=== PATIENT | male | born 1980 | race Caucasian/White ===

== ENCOUNTER 2024-02-16 15:21 | Emergency (ER) | payer OTHER, SELFPAY ==
--- NOTE | ~2024-02-16 | CT_ITS ---
EXAMINATION: CT SOFT TISSUE NECK WITH CONTRAST CLINICAL INFORMATION: Pressure in throat, swelling COMPARISON: None. TECHNIQUE: Following the administration of 60 mL of Omnipaque 350 intravenous contrast, helical imaging was performed in the axial plane with generation of coronal and sagittal reformatted images. This CT examination was performed using dose optimization techniques as appropriate, variously including the following: *Automated exposure control. *Adjustment of mA and/or kV according to patient size (this includes techniques or standardized protocols for targeted exams where dose is matched to indication/reason for exam; i.e. extremities or head). *Use of iterative reconstruction technique. DLP: 485 mGy-cm. FINDINGS: The fat planes of the skull base and soft tissues of the nasopharynx are unremarkable. Trace mucosal thickening in the left maxillary sinus alveolar recess. No mastoid effusion. The temporomandibular joints are normal. The oral cavity is normal. Bilateral punctate calcified palatine tonsilloliths with otherwise unremarkable appearance of the oropharynx. The laryngeal structures are opposed, limiting assessment. No radiopaque foreign body. There are elongated and ossified left greater than right styloid processes/stylohyoid ligaments, terminating at the level of the palatine tonsils, that can be correlated for [place] syndrome. The right styloid process slightly indents upon the right internal jugular vein below the skull base. The submandibular and parotid glands are normal. Diffuse thyromegaly can be correlated with thyroid function tests. No mass effect along the airway. No pathologic size criteria or morphologically suspicious cervical chain lymph nodes. The partially visualized lung apices are clear. Normal opacification of the major neck vessels. At C5-C6, a right central disc osteophyte protrusion likely indents upon the ventral cord. There is asymmetric severe right C7-T1 facet arthropathy. The imaged portions of the brain parenchyma are unremarkable. 3 mm dermal based nodule along the right cheek the correlated with direct inspection. CT/CT soft tissue neck w IV con IMPRESSION: 1. Unremarkable appearance of the aerodigestive tract, noting the laryngeal structures are opposed, limiting assessment of the larynx. No radiopaque foreign body. 2. Elongated and ossified left greater than right styloid processes/stylohyoid ligaments, terminating at the level of the palatine tonsils, that can be correlated for [place] syndrome. Of note, this may present with throat pain/foreign body sensation. 3. At C5-C6, a right central disc osteophyte protrusion likely indents upon the ventral cord. 4. Diffuse thyromegaly can be correlated with thyroid function tests. No mass effect along the airway.
[2024-02-16 15:26] VITALS: BP 136/84; PULSE 84; O2SAT 98
[2024-02-16 16:04] VITALS: BP 122/69; PULSE 84; RESP 16; TEMP 36.4; O2SAT 99; BMI 26.6
--- NOTE | 2024-02-16 16:06 | ED.GENADULT ---
HPI - General Adult General Chief complaint: General Medical Stated complaint: TINGLY PAIN IN NECK Time Seen by Provider: 02/16/24 21:46 Source: patient Mode of arrival: ambulatory Limitations: no limitations History of Present Illness ED Provider: princess GAN narrative: Patient no significant past medical history complaining of non specific discomfort in left side of the neck since a.m. with dizziness no trauma no nausea no vomiting no ringing in the ear no vertiginous feeling no chest pain or palpitation Related Data Previous Rx's ?Medication ?Instructions ?Recorded amoxicillin 875 mg-potassium 1 tab PO BID #20 tabs 04/26/21 clavulanate 125 mg tablet (Augmentin) ibuprofen 600 mg tablet 600 mg PO Q6H PRN fever or pain 02/16/24 #30 tabs Allergies Allergy/AdvReac Type Severity Reaction Status Date / Time No Known Allergies Allergy Verified 02/16/24 16:05 [No Known Allergies*] Review of Systems Review of Systems: Yes all other systems are reviewed and are negative [facility] Social History Social History Alcohol intake: current Alcohol intake frequency: holidays/special occasions only Smoked in Last 30 Days: Yes Use of substances other than those prescribed or required for medical reasons: No Advance Directives: No Advance Directives Information Provided: No Physical Exam ED Vital Signs: Vital Signs - 24 hr 02/16/24 16:04 02/16/24 22:59 02/16/24 22:59 Temperature 97.5 F Pulse Rate 84 60 65 Respiratory Rate 16 Blood Pressure 122/69 124/70 122/79 Pulse Oximetry 99 Oxygen Delivery Method Room Air 02/16/24 22:59 02/16/24 23:00 Temperature 98.3 F Pulse Rate 70 60 Respiratory Rate 17 Blood Pressure 133/79 124/70 Pulse Oximetry 97 Oxygen Delivery Method Room Air BMI result Body Mass Index 26.6 Appearance: Alert. Oriented X3. No acute distress. Eyes: PERRLA, No Nystagmus ENT: Pharynx normal. Oral Mucosa moist Neck: Normal inspection. Neck supple. Soft tissue tenderness left side of the neck thyroid slightly enlarged nontender CVS: Normal heart rate and rhythm. Pulses normal. Respiratory: No respiratory distress. Equal air entry bilateral, no wheezing/rales/rhonchi Abdomen: Soft and nontender. Bowel sounds are present, no mass palpable, no CVA tenderness Skin: Skin warm and dry. Normal skin color. Normal skin turgor. Extremities: No lower extremity edema. No calf tenderness Neuro: Oriented X 3. No motor deficit. No sensory deficit.No cerebellar signs , cranial nerves II-XII intact Course Course Course Narrative: This is a rapid medical exam completed by Keanu HOLLOWAYN: Additional HPI, ROS, PE not included below will be deferred to primary provider. Feels like a mass or lump is a the left neck starting this morning. Bilateral paresthesias earlier today and felt like 'arms weren't there for a second'. Denies difficulty swallowing or tolerating secretions. had lobster last night for dinner but has not had a shellfish allergy in the past Plan: labs, CT soft tissue neck Medications Administered Discontinued Medications Generic Name Dose Route Start Last Admin Trade Name Freq PRN Reason Stop Dose Admin Sodium Chloride 1,000 mls @ 999 mls/hr 02/16/24 22:42 02/16/24 22:49 Ns IV 02/16/24 23:42 999 mls/hr .Q1H1M ONE Administration Medical Decision Making Medical Decision Making [facility] Narrative: Patient nonspecific dizziness likely from the heat and were fluid intake CT scan showed slight in her thyroid with normal TSH calcified ligament may be the cause for the pain patient has normal orthostatics, symptoms improved after IV fluids Differential Diagnosis Differential Diagnoses: The differential diagnosis associated with the presentation includes Heat exhaustion/orthostatic/vertigo Lab Data [facility] Lab Attestation statement: I reviewed the patient's lab results. 02/16/24 16:36 02/16/24 16:36 Labs: Lab Results 02/16/24 Range/Units 16:36 WBC 11.2 H (4.8-10.8) X10*3/uL RBC 5.26 (4.60-5.80) X10*6/uL Hgb 15.6 (14.0-18.0) g/dl Hct 45.4 (42.0-52.0) % MCV 86.3 (80.0-98.0) fL MCH 29.7 (27.0-33.0) pg MCHC 34.4 (31.0-36.0) g/dl RDW 12.2 (11.0-16.0) % Plt Count 258 (160-400) X10*3/uL MPV 9.8 (9.4-12.4) fL Immature Gran % (Auto) 0.4 (0.0-0.4) % Neut % (Auto) 73.2 H (45-73) % Lymph % (Auto) 19.5 L (20-40) % [place] % (Auto) 5.8 (2-11) % Eos % (Auto) 0.6 (0-4) % Baso % (Auto) 0.5 (0-2) % Lymph # (Auto) 2.2 (1.2-4.9) X10*3/uL [place] # (Auto) 0.7 (0.1-1.2) X10*3/uL Eos # (Auto) 0.1 (0.0-0.4) X10*3/uL Baso # (Auto) 0.1 (0.0-0.2) X10*3/uL Abs Immat Gran (auto) 0.04 H (0.00-0.03) X10*3/uL Absolute Neuts (auto) 8.2 (2.0-8.3) x10*3/uL Absolute Nucleated RBC 0.000 (0.0-0.012) X10*3/uL Nucleated RBC % (auto) 0.0 (0.0-0.2) /100WBC Sodium 143 (135-145) mmol/L Potassium 4.0 (3.3-5.1) mmol/L Chloride 107 (96-108) mmol/L Carbon Dioxide 28 (22-29) mmol/L Anion Gap 12 (12-20) BUN 10 (9-16) mg/dL Creatinine 0.81 (0.5-1.4) mg/dL Estim Creat Clear Calc 109.9 Estimated GFR > 60 Random Glucose 79 (60-115) mg/dL Calcium 9.7 (8.4-10.2) mg/dL Total Bilirubin 0.3 (0.0-1.0) mg/dL AST 15 (5-37) U/L ALT 16 (0-40) U/L Alkaline Phosphatase 96 (39-117) U/L Total Protein 7.2 (6.5-8.0) g/dL Albumin 4.8 (3.5-5.0) g/dL TSH 0.72 (0.32-4.0) uIU/mL Independent Interpretation I performed an independent interpretation of an: CT Scan Radiology Impression Discussion of test interpretation with radiology: I have reviewed the radiologist's reading. Radiologist Impression: CT/CT soft tissue neck w IV con IMPRESSION: 1. Unremarkable appearance of the aerodigestive tract, noting the laryngeal structures are opposed, limiting assessment of the larynx. No radiopaque foreign body. 2. Elongated and ossified left greater than right styloid processes/stylohyoid ligaments, terminating at the level of the palatine tonsils, that can be correlated for [place] syndrome. Of note, this may present with throat pain/foreign body sensation. 3. At C5-C6, a right central disc osteophyte protrusion likely indents upon the ventral cord. 4. Diffuse thyromegaly can be correlated with thyroid function tests. No mass effect along the airway. Discharge Plan Discharge Clinical Impression: Dizziness Patient Disposition: Home, Self-Care Instructions: Dizziness (ED) Additional Instructions: Drink plenty of fluids Cause of your neck pain is not clear your CT scan did not show calcification of the legament which might be causing the pain Tylenol/Motrin for pain as needed Prescriptions: New ibuprofen 600 mg tablet 600 mg PO Q6H PRN (Reason: fever or pain) Qty: 30 0RF No Action amoxicillin-pot clavulanate [Augmentin] 875-125 mg tablet 1 tab PO BID Qty: 20 0RF Print Language: Swedish
[2024-02-16 16:42] LABS: MANUAL DIFF FLAG NO
[2024-02-16 16:47] LABS: Basophils Absolute Auto 0.1 X10*3/uL (0.0-0.2); Basophils Percent Auto 0.5 % (0-2); Eosinophils Absolute Auto 0.1 X10*3/uL (0.0-0.4); Eosinophils Percent Auto 0.6 % (0-4); Hematocrit 45.4 % (42.0-52.0); Hemoglobin 15.6 g/dl (14.0-18.0); Imm Gran Abs Auto 0.04 X10*3/uL (0.00-0.03); Imm Gran Pct Auto 0.4 % (0.0-0.4); Lymphocytes Absolute Auto 2.2 X10*3/uL (1.2-4.9); Lymphocytes Percent Auto 19.5 % (20-40); Mean Corpuscular HGB Conc 34.4 g/dl (31.0-36.0); Mean Corpuscular Hemoglobin 29.7 pg (27.0-33.0); Mean Corpuscular Volume 86.3 fL (80.0-98.0); Mean Platelet Volume 9.8 fL (9.4-12.4); Monocytes Absolute Auto 0.7 X10*3/uL (0.1-1.2); Monocytes Percent Auto 5.8 % (2-11); Neutrophils Absolute Auto 8.2 x10*3/uL (2.0-8.3); Neutrophils Percent Auto 73.2 % (45-73); Platelet Count 258 X10*3/uL (160-400); Red Blood Count 5.26 X10*6/uL (4.60-5.80); Red Cell Distribution Width 12.2 % (11.0-16.0); White Blood Count 11.2 X10*3/uL (4.8-10.8)
[2024-02-16 17:00] LABS: Alanine Aminotransferase 16 U/L (0-40); Albumin Level 4.8 g/dL (3.5-5.0); Alkaline Phosphatase 96 U/L (39-117); Anion Gap 12 (12-20); Aspartate Amino Transferase 15 U/L (5-37); Bilirubin Total 0.3 mg/dL (0.0-1.0); Blood Urea Nitrogen 10 mg/dL (9-16); Calcium 9.7 mg/dL (8.4-10.2); Carbon Dioxide 28 mmol/L (22-29); Chloride 107 mmol/L (96-108); Creatinine Clr Calc Pharmacy 109.9; Estimated Glomerular Filt Rate > 60; Glucose Random 79 mg/dL (60-115); Sodium 143 mmol/L (135-145); Total Protein 7.2 g/dL (6.5-8.0)
--- NOTE | 2024-02-16 21:26 | PC.NURSE ---
pt from home, a&ox4, respirations even and unlabored, reported waking up this morning with severe left sided neck pain; denies radiation to extremities. reports dizziness and lightheadedness but denies LOC. pt noted to have full range of motion of neck, able to ambulate to room with steady gait. neuros in tact. 20G placed in left ac.
[2024-02-16] MEDS: 0.9 % Sodium Chloride 1,000 ML 999 ML IV (22:49)
[2024-02-16 22:59] VITALS: BP 122/79; BP 124/70; BP 133/79; PULSE 60; PULSE 65; PULSE 70
[2024-02-16 23:00] VITALS: BP 124/70; PULSE 60; RESP 17; TEMP 36.8; O2SAT 97
[2024-02-16 23:30] LABS: Thyroid Stimulating Hormone 0.72 uIU/mL (0.32-4.0)
[2024-02-17 00:09] VITALS: BP 133/75; PULSE 68; RESP 17; TEMP 36.6; O2SAT 98
[2024-02-17 00:10] VITALS: BP 133/75; PULSE 68; RESP 17; TEMP 36.6; O2SAT 98
== END 2024-02-17 00:10 | disposition home or self-care (01) ==
PROVIDERS: Nurse Practitioner Family; Emergency Provider Internal Medicine; PCP Nurse Practitioner Family
DX: R42 Dizziness and giddiness (principal); M54.2 Cervicalgia; R53.83 Other fatigue; R11.0 Nausea; Z79.899 Other long term (current) drug therapy
CPT/HCPCS: 36415; 70491; 80053; 84443; 85025; 96360; 99284

== ENCOUNTER 2024-05-15 10:36 | Outpatient (AMB) | payer OTHER, SELFPAY ==
[2024-05-15 11:28] VITALS: BP 110/76; PULSE 68; TEMP 36.5; O2SAT 98; BMI 26.0
--- NOTE | 2024-05-15 11:28 | AM.OFFWIN_ITS ---
Intake Vital Signs 05/15/24 11:28 Height 5 ft 7 in Weight 166 lb BMI 26.0 BP 110/76 Blood Pressure Location Rt brachial Position Sitting Pulse 68 Pulse Source Pulse Oximeter Temp 97.7 F Temp Source Oral Pulse Oximetry (%) 98 Oxygen Delivery Method Room Air Intake Visit Reasons: EP Ear pain, cold 3 weeks Intake Note: Patient here for right ear pain that has been present for about 1 week. Patient Tobacco Use Status: Current everyday Tobacco user Allergies No Known Allergies [No Known Allergies*] Allergy (Verified 05/15/24 11:29) Do you need a note to return to daycare/school/sports/work: No HPI HPI Comments History of Present Illness Details 44 y/o male patient who presents to the walk in clinic with c/o right ear pain since yesterday. He has been having sinus pressure and cough for the past 2 months. [facility] Social History Alcohol intake: current Alcohol intake frequency: holidays/special occasions only Patient Tobacco Use Status: Current everyday Tobacco user Review of Systems Const All systems reviewed & are unremarkable except as noted in HPI and below Physical Exam Vital Signs: Last Vital Signs Temp 97.7 F 05/15/24 11:28 Pulse 68 05/15/24 11:28 BP 110/76 05/15/24 11:28 Pulse Ox 98 05/15/24 11:28 Oxygen Delivery Method Room Air 05/15/24 11:28 BMI result Body Mass Index 26.0 Const General: cooperative, comfortable and no acute distress Orientation/consciousness: patient oriented x3 HEENT Head: Yes normocephalic Ears: external ears normal and TM abnormal bulging and with fluid behind the TM; not with effusion, not erythematous, not perforated and not retracted General nose exam: Abnormal mucous membranes and turbinates present boggy and erythematous Face and sinus: Yes sinuses nontender Mouth: moist mucous membranes Throat: Yes postnasal drainage Resp Effort & Inspection: normal respiratory effort and able to speak in complete sentences Auscultation: clear to auscultation bilaterally, no crackles, no rales, no rhonchi and no wheezes Cardio Heart sounds: S1 normal heart sound present and S2 normal heart sound present Skin General skin exam: no rashes or lesions noted Neuro General: patient oriented x3, gait normal and moves all extremities Psych Speech and movement: Normal speech and movement present Assessment & Plan Assessment & Plan (1) Upper respiratory infection: Code(s): J06.9 - Acute upper respiratory infection, unspecified Qualifiers: URI type: unspecified URI Qualified Code(s): J06.9 - Acute upper respir atory infection, unspecified Plan: Ordered Abx Medications: New cetirizine (Zyrtec) 10 mg PO DAILY PRN 90 tabs 0RF allergy symptoms J06.9 - Acute upper respiratory infection, unspecified azithromycin 500 mg PO DAILY 3 tabs 0RF 3 days J06.9 - Acute upper respiratory infection, unspecified Coding Level of Care Code Est Pt Level 3 (39864) Diagnoses Upper respiratory tract infection, unspecified type J06.9 URI type: unspecified URI Time Spent (min) 15
== END 2024-05-15 12:07 | disposition home or self-care (01) ==
PROVIDERS: PCP Nurse Practitioner Family; Visit Provider Nurse Practitioner Family
DX: J06.9 Acute upper respiratory infection, unspecified (principal)
CPT/HCPCS: 99051; 99213